=== PATIENT | female | born 1995 | race Caucasian/White ===

== ENCOUNTER 2016-06-23 14:44 | Emergency (ER) | payer OTHER ==
[~2016-06-23 14:44] MED LIST: KEPPRA500 MG PO; KEPPRA750 MG PO; MELOXICAM7.5 MG PO; PROZAC40 MG PO; REQUIP0.5 MG PO; TRAZODONE HCL150 MG PO; WELLBUTRIN 100100 MG PO; ZANAFLEX2 MG PO
[2016-06-23 17:11] LABS: RED BLOOD COUNT 4.49 M/UL (4.00-5.10); WHITE BLOOD COUNT 5.9 K/UL (4.5-11.0)
[2016-06-23 17:31] LABS: BUN/CREATININE RATIO 4 (0-10)
== END 2016-06-23 20:08 | disposition home or self-care (01) ==
LOC: ER1 14:44
PROVIDERS: Physician Assistant
DX: G40.419 Other generalized epilepsy and epileptic syndromes, intractable, without status epilepticus (principal); E87.6 Hypokalemia; F17.210 Nicotine dependence, cigarettes, uncomplicated
CPT/HCPCS: 36415; 71010; 80053; 80307; 81001; 83690; 84703; 85025; 87086; 96374; 99285; J2060

== ENCOUNTER 2016-07-08 20:18 | Emergency (ER) | payer OTHER ==
[2016-07-08 21:14] LABS: HEMOGLOBIN 13.2 gm/dl (12.3-15.3); RED BLOOD COUNT 4.52 M/UL (4.00-5.10); WHITE BLOOD COUNT 6.7 K/UL (4.5-11.0)
[2016-07-08 21:29] LABS: BUN/CREATININE RATIO 8 (0-10)
== END 2016-07-08 22:17 | disposition home or self-care (01) ==
LOC: ER1 20:18
PROVIDERS: Student in an Organized Health Care Education/Training Program
DX: G40.909 Epilepsy, unspecified, not intractable, without status epilepticus (principal); Z87.891 Personal history of nicotine dependence; Z79.899 Other long term (current) drug therapy
CPT/HCPCS: 36415; 80048; 85025; 93005; 99284; J2060

== ENCOUNTER 2016-08-02 13:45 | Emergency (ER) | payer OTHER ==
[2016-08-02 14:25] LABS: HEMOGLOBIN 12.7 gm/dl (12.3-15.3); RED BLOOD COUNT 4.37 M/UL (4.00-5.10); WHITE BLOOD COUNT 6.5 K/UL (4.5-11.0)
[2016-08-02 14:46] LABS: BUN/CREATININE RATIO 11 (0-10)
== END 2016-08-02 15:40 | disposition home or self-care (01) ==
LOC: ER1 13:45
PROVIDERS: Emergency Medicine
DX: R56.9 Unspecified convulsions (principal); F17.200 Nicotine dependence, unspecified, uncomplicated
CPT/HCPCS: 36415; 80048; 85025; 99285

== ENCOUNTER 2016-08-19 14:44 | Emergency (ER) | payer OTHER | END 2016-08-19 16:42 | disposition home or self-care (01) | LOC: ER1 14:44 | DX: N39.0 Urinary tract infection, site not specified (principal); G40.909 Epilepsy, unspecified, not intractable, without status epilepticus; F17.200 Nicotine dependence, unspecified, uncomplicated | CPT/HCPCS: 81001; 84703; 96372; 99284 ==

== ENCOUNTER 2020-03-19 17:00 | Outpatient (CLI) | payer MEDICARE, OTHER ==
[~2020-03-19 17:00] MED LIST changes: +AMOXICILLIN500 MG PO; +CEPHALEXIN500 MG PO; +COLACE 100MG C100 MG PO; +IBUPROFEN600 MG PO; +NORCO 5-325 TA1 EACH PO
== END 2020-03-19 19:33 | disposition home or self-care (01) ==
LOC: GENOP 17:00
DX: O36.8130 Decreased fetal movements, third trimester, not applicable or unspecified (principal); O99.333 Smoking (tobacco) complicating pregnancy, third trimester; Z3A.33 33 weeks gestation of pregnancy
CPT/HCPCS: 81001; G0463

== ENCOUNTER 2020-04-09 11:06 | Inpatient (IN) | payer MEDICARE, OTHER ==
[~2020-04-09] VITALS: Ht 170.2 cm; Wt 103.0 kg
[2020-04-09] MEDS ORDERED: PRILOSEC OTC20 MG PO (12:29)
[2020-04-09 12:43] LABS: HEMOGLOBIN 12.7 gm/dl (12.3-15.3); RED BLOOD COUNT 3.94 M/UL (4.00-5.10); WHITE BLOOD COUNT 12.5 K/UL (4.5-11.0)
[2020-04-09 13:11] LABS: BUN/CREATININE RATIO 11 (0-10)
[2020-04-10] MEDS ORDERED: IBUPROFEN600 MG PO (14:14)
[2020-04-10] MEDS ORDERED: DOCUSATE SODIU100 MG PO (14:14)
[2020-04-11 07:07] LABS: HEMOGLOBIN 10.7 gm/dl (12.3-15.3)
== END 2020-04-12 17:08 | disposition home or self-care (01) | DRG 807 ==
LOC: GENOP 11:06 → OB 12:02
PROVIDERS: Obstetrics & Gynecology; ADMIT Obstetrics & Gynecology
PROC: 10E0XZZ Delivery of Products of Conception, External Approach (ICD-10-PCS; principal; 2020-04-10)
PROC: 3E033VJ Introduction of Other Hormone into Peripheral Vein, Percutaneous Approach (ICD-10-PCS; 2020-04-10)
PROC: 10907ZC Drainage of Amniotic Fluid, Therapeutic from Products of Conception, Via Natural or Artificial Opening (ICD-10-PCS; 2020-04-10)
DX: O36.5930 Maternal care for other known or suspected poor fetal growth, third trimester, not applicable or unspecified (principal); Z37.0 Single live birth; Z3A.36 36 weeks gestation of pregnancy; Z28.21 Immunization not carried out because of patient refusal; Z20.822 Contact with and (suspected) exposure to COVID-19; O69.89X0 Labor and delivery complicated by other cord complications, not applicable or unspecified; O99.214 Obesity complicating childbirth; O99.334 Smoking (tobacco) complicating childbirth; F17.210 Nicotine dependence, cigarettes, uncomplicated
CPT/HCPCS: 36415; 51702; 80053; 81001; 82800; 85014; 85018; 85025; J2590; J7120; U0002